=== PATIENT | female | born 1965 | race African-American/Black ===

== ENCOUNTER 2017-03-02 10:14 | Emergency (ER) | payer MEDICAID, OTHER ==
[~2017-03-02] VITALS: Ht 165.1 cm; Wt 84.8 kg
[2017-03-02] MEDS ORDERED: AMLODIPINE BESYL5 MG ORAL (10:29)
[2017-03-02] MEDS ORDERED: ALBUTEROL SULF8.5 GM INH (10:29)
[2017-03-02] MEDS ORDERED: HYDROCHLOROTHIA25 MG ORAL (10:29)
[2017-03-02] MEDS ORDERED: Solu-MEDROL 125mg Inj IVP ONE (10:45)
[2017-03-02] MEDS ORDERED: Morphine Sulfate 2mg/ml Inj IVP ONE (10:45)
--- NOTE | 2017-03-02 10:56 | Emergency Room Report ---
History of Present Illness General Chief Complaint: Diarrhea Source: Patient Present Illness HPI Patient presents with abdominal cramps and diarrhea for one week. She's also passing some blood. She has a history of ulcerative colitis. When she has exacerbations of that she has symptoms like she has now. She denies any fevers. No vomiting. In the past she's been treated with Asacol and prednisone. She's not taking this medication at this time. The symptoms get worse every time she eats - she almost immediately has to move her bowels. States that she's had exacerbation of her ulcerative colitis. The patient believes is she has pica. Recently she's been eating cornstarch and other bicarbonate. She also feels dizzy when she stands up and become short of breath when she's exertional. Recently she had some chest pressure not radiating. It was left-sided. She didn't take any medication for this. She denies cardiac risk factors. Allergies: Coded Allergies: PENICILLINS (Verified Allergy, Unknown, 03/02/17) Patient History Past Medical History: see triage record Social History: Denies: alcohol use, drug use, smoking Social History Narrative at home Now: No Reviewed Nursing Documentation: PMH: Agreed, PSxH: Agreed Nursing Documentation-PMH Past Medical History: No History, Except For Hx Hypertension: Yes Hx Gastrointestinal Problems: Yes - COLITIS, HERNIA Review of Systems All Other Systems: negative except mentioned in HPI Physical Exam Vital Signs Date Time Temp Pulse Resp B/P Pulse Ox O2 Delivery O2 Flow Rate FiO2 03/02/17 10:20 97.9 96 20 128/83 100 Room Air Sp02 EP Interpretation: reviewed, normal General Appearance: well appearing, no apparent distress, GCS 15 Head: normocephalic Eyes: bilateral eye EOMI, bilateral eye PERRL, bilateral eye conjunctivae pale ENT: moist mucus membranes Neck: supple Respiratory: lungs clear, normal breath sounds Cardiovascular #1: regular rate, rhythm Cardiovascular #2: 2+ radial (R) Gastrointestinal: normal inspection, normal bowel sounds, no mass, non- distended, no guarding - diffuse, no rebound, tenderness Musculoskeletal: back normal, gait/station normal, normal range of motion Neurologic: alert, oriented x3, grossly normal Psychiatric: mood/affect normal Skin: warm/dry, pallor Medical Decision Making Diagnostic Impression: Primary Impression: Ulcerative colitis Qualified Codes: K51.919 - Ulcerative colitis, unspecified with unspecified complications Additional Impressions: Symptomatic anemia Hypokalemia ER Course Patient presents with abdominal cramps and bloody diarrhea. Symptoms are consistent with ulcerative colitis exacerbation but could also suggest gastroenteritis, colitis or other causes. Evaluation will be with labs abdominal series. Patient is also having chest pain and EKG will be performed. The patient has some orthostatic symptomatology and she'll be treated with aggressive IV hydration. Labs with normal WBC but low H/H. Potassium low. Improving with treatment. Concern over low H/H and symptoms. Needs observation in hospital. Given potassium also. Discussed with Dr. Mayers. Accepted at [facility]. Morphine repeated. Patient serious, but stable for transfer. Laboratory Tests Test 03/02/17 10:30 03/02/17 10:50 Urine Color Yellow Urine Appearance Slightly cloudy Urine pH 6 (4.5-8.0) Urine Specific [place] 1.025 (1.005-1.035) Urine Protein 2+ (NEGATIVE) H Urine Glucose (UA) Negative (NEGATIVE) Urine Ketones 1+ (NEGATIVE) H Urine Occult Blood 2+ (NEGATIVE) H Urine Nitrite Negative (NEGATIVE) Urine Bilirubin 1+ (NEGATIVE) H Urine Ictotest Negative Urine Urobilinogen 1 MG/DL (0.0-1.0) H Urine Leukocyte Esterase 1+ (NEGATIVE) H Urine RBC 2-4 /HPF (0 - 2) H Urine WBC 2-4 /HPF (0 - 2) Urine Squamous Epithelial Cells Moderate /LPF (NONE/OCC) H Urine Bacteria Few /HPF (NONE) Urine Hyaline Casts 0-2 /LPF (NONE) H White Blood Count 8.8 K/UL (4.8-10.8) Red Blood Count 4.07 M/UL (4.20-5.40) L Hemoglobin 8.5 G/DL (12.0-16.0) L Hematocrit 29.6 % (37.0-47.0) L Mean Corpuscular Volume 73 FL (80-99) L Mean Corpuscular Hemoglobin 21.0 PG (27.0-31.0) L Mean Corpuscular Hemoglobin Concent 28.8 G/DL (32.0-36.0) L Red Cell Distribution Width 15.4 % (11.6-14.8) H Platelet Count 490 K/UL (150-450) H Mean Platelet Volume 6.3 FL (6.5-10.1) L Neutrophils (%) (Auto) 52.1 % (45.0-75.0) Lymphocytes (%) (Auto) 30.9 % (20.0-45.0) Monocytes (%) (Auto) 8.7 % (1.0-10.0) Eosinophils (%) (Auto) 6.4 % (0.0-3.0) H Basophils (%) (Auto) 2.0 % (0.0-2.0) Erythrocyte Sedimentation Rate 85 MM/HR (0-30) H Prothrombin Time 10.0 SEC (9.30-11.50) Prothrombin Time INR 1.0 (0.9-1.1) PTT 21 SEC (23-33) L Sodium Level 141 mEQ/L (135-145) Potassium Level 3.1 mEQ/L (3.4-4.9) L Chloride Level 99 mEQ/L (98-107) Carbon Dioxide Level 27 mEQ/L (20-30) Anion Gap 15 (5-15) Blood Urea Nitrogen 8 mg/dL (7-23) Creatinine 0.9 mg/dL (0.5-0.9) Estimate Glomerular Filtration Rate > 60 mL/min (>60) Glucose Level 88 mg/dL (74-106) Calcium Level 9.2 mg/dL (8.6-10.2) Total Bilirubin 0.5 mg/dL (0.0-1.2) Aspartate Amino Transferase (AST) 26 U/L (5-40) Alanine Aminotransferase (ALT) 24 U/L (3-33) Alkaline Phosphatase 86 U/L (35-104) Total Protein 8.0 g/dL (6.6-8.7) Albumin 3.9 g/dL (3.5-5.2) Globulin 4.1 g/dL Albumin/Globulin Ratio 0.9 (1.0-2.7) L Lipase 31 U/L (< 60) EKG Diagnostic Results Rate: normal Rhythm: NSR ST Segments: no acute changes Rhythm Strip Diag. Results EP Interpretation: yes Rhythm: NSR, no PVC's, no ectopy Other X-Ray Diagnostic Results X-Ray ordered: abd # of Views/Limited Vs Complete: 1 View EP Interpretation: Yes Interpretation: other - NSBGP, no SBO, no masses Indication: Pain Impression: No acute disease Interpreting ER Provider: isidra Last Vital Signs Date Time Temp Pulse Resp B/P Pulse Ox O2 Delivery O2 Flow Rate FiO2 03/02/17 17:10 97.8 83 16 114/74 100 Room Air Status: improved Disposition: XFER SHT-TRM HOSP Condition: Serious Referrals: [employer] [facility],REFERRIN (PCP) Cuate Resendez M.D. Mar 02, 2017 10:56
[2017-03-02] MEDS ORDERED: Tubing IV Cassette IV ONE (10:58)
[2017-03-02 11:00] VITALS: BP 118/86
[2017-03-02 11:07] LABS: APPEARANCE,URINE SLIGHTLY CLOUDY; KETONES,URINE 1+ (NEGATIVE); LEUKOCYTE ESTERASE ,URINE 1+ (NEGATIVE); NITRITE,URINE NEGATIVE (NEGATIVE); PH,URINE 6 (4.5-8.0); PROTEIN,URINE 2+ (NEGATIVE); UROBILINOGEN,URINE 1 MG/DL (0.0-1.0)
[2017-03-02 11:08] LABS: EOSINOPHILS % (AUTO) 6.4 % (0.0-3.0); LYMPHOCYTES % (AUTO) 30.9 % (20.0-45.0); MEAN CORPUSCULAR HGB CONC 28.8 G/DL (32.0-36.0); MEAN CORPUSCULAR VOLUME 73 FL (80-99); MEAN PLATELET VOLUME 6.3 FL (6.5-10.1); MONOCYTES % (AUTO) 8.7 % (1.0-10.0); NEUTROPHILS % (AUTO) 52.1 % (45.0-75.0); PLATELET COUNT 490 K/UL (150-450); RED BLOOD COUNT 4.07 M/UL (4.20-5.40); RED CELL DISTRIBUTION WIDTH 15.4 % (11.6-14.8); WHITE BLOOD COUNT 8.8 K/UL (4.8-10.8)
[2017-03-02 11:19] LABS: ALANINE AMINOTRANSFERASE 24 U/L (3-33); ALBUMIN/GLOBULIN RATIO 0.9 (1.0-2.7); ANION GAP 15 (5-15); ASPARTATE AMINO TRANSFERASE 26 U/L (5-40); CALCIUM 9.2 mg/dL (8.6-10.2); CARBON DIOXIDE 27 mEQ/L (20-30); CHLORIDE 99 mEQ/L (98-107); CREATININE 0.9 mg/dL (0.5-0.9); GLOMERULAR FILTRATION RATE > 60 mL/min (>60); HEMOLYSIS 27; LIPASE 31 U/L (< 60); POTASSIUM 3.1 mEQ/L (3.4-4.9); SODIUM 141 mEQ/L (135-145)
[2017-03-02 11:38] LABS: BACTERIA,URINE FEW /HPF; HYALINE CASTS, URINE 0-2 /LPF; SQUAMOUS EPITHELIAL CELL,UR MODERATE /LPF (NONE/OCC)
--- NOTE | 2017-03-02 11:45 | Diagnostic Imaging Report ---
Indications: Abdominal pain. Technique: AP view of the abdomen Findings: Comparison: None. Bowel gas pattern is unremarkable. Well-rounded calcifications in the pelvis compatible with phleboliths. No abnormal calcific or soft tissue densities are demonstrated. Small disc marginal osteophytes in lower lumbar spine. Spurs emanate from the left iliac crest. Surgical clips in the abdominal right upper quadrant.. IMPRESSION: No evidence of acute abdominopelvic disease Previous cholecystectomy Mild degenerative spondylosis. Left iliac crest enthesophytes
[2017-03-02 11:46] LABS: ICTOTEST NEGATIVE
[2017-03-02 12:20] LABS: ERYTHROCYTE SEDIMENTATION RATE 85 MM/HR (0-30)
[2017-03-02 13:58] VITALS: BP 133/105
[2017-03-02] MEDS ORDERED: KCl 10% 20 mEq/15ml liquid ORAL STA (14:13)
[2017-03-02 16:00] VITALS: BP 114/74
[2017-03-02] MEDS ORDERED: Morphine Sulfate 4mg/ml Inj IVP ONE (16:15)
[2017-03-02 17:10] VITALS: BP 114/74
[2017-03-02] MEDS ORDERED: FAMOTIDINE20 MG ORAL (18:07)
[2017-03-02] MEDS ORDERED: NAPROXEN375 M2 ORAL (18:07)
[2017-03-02] MEDS ORDERED: POTASSIUM CHLO10 ME2 PO (18:08)
== END 2017-03-02 17:15 | disposition short-term general hospital (02) ==
LOC: EMR 10:45
DX: K51.90 Ulcerative colitis, unspecified, without complications (principal); D64.9 Anemia, unspecified; E87.6 Hypokalemia; Z88.0 Allergy status to penicillin; I10 Essential (primary) hypertension
CPT/HCPCS: 36415; 74000; 80053; 81003; 83690; 85025; 85610; 85651; 85730; 93005; 96360; 96374; 96375; 99285; J2270; J2405; J2930